=== PATIENT | female | born 1980 | race Caucasian/White ===

== ENCOUNTER 2019-05-28 18:06 | Emergency (ER) | payer SELFPAY ==
[2019-05-28] MEDS ORDERED: MUPIROCIN1 GM NS (18:59)
[2019-05-28] MEDS ORDERED: SEPTRA DS 8001 TAB PO (18:59)
[2019-05-28 19:14] VITALS: BP 131/86
== END 2019-05-28 19:14 | disposition home or self-care (01) ==
LOC: ED 18:06
DX: L02.01 Cutaneous abscess of face (principal); L01.00 Impetigo, unspecified; F17.210 Nicotine dependence, cigarettes, uncomplicated; Z90.710 Acquired absence of both cervix and uterus; Z90.49 Acquired absence of other specified parts of digestive tract; Z90.89 Acquired absence of other organs